=== PATIENT | female | born 1995 | race Two or more races ===

== ENCOUNTER 2016-05-30 15:25 | Emergency (ER) | payer OTHER ==
[2016-05-30 15:37] VITALS: BP 102/58; PULSE 108; TEMP 97.9; BMI 18.3
--- NOTE | 2016-05-30 15:57 | PDOC ---
*Physical Exam - Vital Signs Last Vital Signs Temp Pulse Resp BP Pulse Ox 97.9 F 108 H 16 102/58 100 05/30/16 15:33 05/30/16 15:33 05/30/16 15:33 05/30/16 15:33 05/30/16 15:33 - Physical Exam General Appearance: Yes: Appropriately Dressed HEENT: positive: Other (fa) Neck: negative: Tender, Rigid, Supple Respiratory/Chest: negative: Chest Tender Integumentary: positive: Other (wound appears healing well, not infected) Medical Decision Making - Medical Decision Making 05/30/16 15:54 will stop abx due to vomiting and diarrhea *DC/Admit/Observation/Transfer Diagnosis at time of Disposition: Visit for wound check - Discharge Dispostion Disposition: HOME Condition at time of disposition: Stable Admit: No - Patient Instructions Additional Instructions: wound check with local MD this week; clean with peroxide apply bacitrin
--- NOTE | 2016-05-30 16:36 | PDOC ---
History of Present Illness - General Chief Complaint: Cold Symptoms Stated Complaint: HEADACHE, BODY ACHE Time Seen by Provider: 05/30/16 15:45 History Source: Patient Exam Limitations: No Limitations - History of Present Illness Initial Comments: 05/30/16 16:32 PLEASE NOTE EARLIER DOC. NOTED CONTINUATION OF CARE IS MISTAKE; CC 20 yo female sore throat, fever, chills x today; no ill pts Timing/Duration: reports: 4-6 hours Severity: Yes: mild, moderate Presenting Symptoms: Yes: fever, runny nose, persistent cough, sore throat, headache. No: diarrhea, vomiting, skin rash Past History - Past History Allergies/Adverse Reactions: Allergies corn Allergy (Unknown, Verified 05/30/16 15:32) patient states that she does not know reactions to food allergies, this was diagnosed through allergy testing grapefruit Allergy (Unknown, Verified 05/30/16 15:32) patient states that she does not know reactions to food allergies, this was diagnosed through allergy testing hazelnut Allergy (Unknown, Verified 05/30/16 15:32) patient states that she does not know reactions to food allergies, this was diagnosed through allergy testing soybean Allergy (Unknown, Verified 05/30/16 15:32) patient states that she does not know reactions to food allergies, this was diagnosed through allergy testing tomato Allergy (Unknown, Verified 05/30/16 15:32) patient states that she does not know reactions to food allergies, this was diagnosed through allergy testing No Known Drug Allergies Allergy (Verified 05/30/16 15:32) no known drug allergies - numerous environmental and food allergies environmental Allergy (Intermediate, Uncoded 05/30/16 15:32) patient states that she does not know reactions to environmental allergies, this was diagnosed through allergy testing peanut Allergy (Unknown, Uncoded 05/30/16 15:32) patient states that she does not know reactions to food allergies, this was diagnosed through allergy testing Home Medications: Ambulatory Orders NK [No Known Home Medication] 04/14/16 - Social History Smoking Status: Never smoked Number of Cigarettes Smoked Per Day: 3 Review of Systems - Review of Systems Constitutional: Yes: Chills, Fever, Malaise HEENTM: Yes: Nose Congestion, Throat Pain Respiratory: Yes: Cough. No: Symptoms reported, SOB with Exertion, Wheezing, Hemoptysis Cardiac (ROS): No: Symptoms Reported ABD/GI: No: Symptoms Reported, Diarrhea, Nausea, Vomiting Musculoskeletal: Yes: Joint Pain Integumentary: No: Symptoms Reported, Rash *Physical Exam - Vital Signs Last Vital Signs Temp Pulse Resp BP Pulse Ox 97.9 F 108 H 16 102/58 100 05/30/16 15:33 05/30/16 15:33 05/30/16 15:33 05/30/16 15:33 05/30/16 15:33 - Physical Exam General Appearance: Yes: Appropriately Dressed HEENT: positive: TMs Normal, Nasal Congestion, Rhinorrhea. negative: Pharyngeal Erythema, Tonsillar Exudate, Tonsillar Erythema, TM Bulging, TM Dull , TM Erythema Neck: positive: Supple. negative: Tender, Rigid, Lymphadenopathy (R), Lymphadenopathy (L) Respiratory/Chest: positive: Lungs Clear, Normal Breath Sounds. negative: Chest Tender, Accessory Muscle Use Cardiovascular: positive: Regular Rhythm, Regular Rate Lymphatic: negative: Adenopathy Integumentary: positive: Normal Color, Dry, Warm. negative: Rash, Swelling Neurologic: positive: Fully Oriented, Alert ED Treatment Course - ADDITIONAL ORDERS Additional order review: Laboratory Results 05/30/16 16:10 Urine HCG, Qual Negative Medical Decision Making - Medical Decision Making 05/30/16 17:13 influenza negative; will treat as viral illness *DC/Admit/Observation/Transfer Diagnosis at time of Disposition: Viral infection - Discharge Dispostion Disposition: HOME Condition at time of disposition: Stable - Patient Instructions Additional Instructions: PLease see local MD next week if no better; advil 400mg for fever and body aches ; rest at home - Post Discharge Activity Work/School Note: Back to Work
== END 2016-05-30 17:21 | disposition home or self-care (01) ==
LOC: JERFT 15:25
DX: B34.9 Viral infection, unspecified (principal)
CPT/HCPCS: 84703; 87804; 99281-25